=== PATIENT | female | born 1985 | race Caucasian/White ===

== ENCOUNTER 2018-02-28 12:31 | Emergency (ER) | payer OTHER ==
[~2018-02-28] VITALS: Ht 162.6 cm; Wt 59.4 kg
[~2018-02-28 12:31] MED LIST: IBUP-974 PO
[2018-02-28 12:39] VITALS: BP 123/80
--- NOTE | 2018-02-28 12:45 | NUR ---
PT. ARRIVED TO THE ED DUE TO ANXIETY. PT STATES " I TAKE ALPROZOLAM AND PROZAC AND I RAN OUT OF IT ABOUT 2 DAYS AGO AND IM REALLY SHAKY AND I FEEL MAYBE WITHDRAWALS ". NO PAIN AT THIS TIME. PT. SEEMS ANXIOUS AND SHAKY SITTING IN CHAIR. RR EVEN AND UNLABORED. SAFETY PRECAUTIONS IMPLEMENTED . WILL CONTINUE TO MONITOR. DENIES ANY N/V/D AT THIS TIME.
[2018-02-28 13:48] VITALS: BP 120/82
== END 2018-02-28 13:48 | disposition home or self-care (01) ==
LOC: MED 12:31
DX: F41.9 Anxiety disorder, unspecified (principal); F13.20 Sedative, hypnotic or anxiolytic dependence, uncomplicated; Z88.6 Allergy status to analgesic agent
CPT/HCPCS: 99284